=== PATIENT | female | born 1965 | race African-American/Black ===

== ENCOUNTER → 2018-03-03 | Outpatient (CLI) | payer MEDICAID ==
--- NOTE | 2018-03-03 16:58 | XCELERA REPORT ---
[address] [facility] [address] Lower Extremity Venous Evaluation Procedure: Color flow and duplex imaging bilaterally of the veins of the lower extremities as well as the Common Femoral veins. Right Sided Venous Evaluation Normal vessel filling wall to wall, compression and augmentation as well as Colour flow down to the infrageniculate veins. Left Sided Venous Evaluation Normal vessel filling wall to wall, compression and augmentation as well as Colour flow down to the infrageniculate veins. Interpretation Summary No duplex evidence of DVT or obstruction in the bilateral lower extremities. Name: JUAN MONIQUE Age: 52 yrs Gender: Female : 1965 Patient Status: Outpatient Patient Location: Study Date: 03/03/2018 08:32 AM Reason For Study: LLE PAIN Ordering Physician: COCO AARON Performed By: Sita Geronimo : COCO AARON > Khanh Blackwell
== END ==
LOC: SP 08:14
PROVIDERS: ATTEND Family Medicine
DX: M79.605 Pain in left leg (principal)
CPT/HCPCS: 93970

== ENCOUNTER 2018-10-23 14:19 | Emergency (ER) | payer MEDICAID ==
--- NOTE | 2018-10-23 14:55 | ER Document Report ---
ED Medical Screen (RME) - General Chief Complaint: Abdominal Pain Stated Complaint: ABDOMINAL PAIN Time Seen by Provider: 10/23/18 14:50 Primary Care Provider: COCO AARON MD [Primary Care Provider] - Follow up as needed Mode of Arrival: Wheelchair Information source: Patient Notes: Patient is a 53-year-old female who presents the emergency department with mul tiple vague complaints. Patient reports she has been having left lower extremity pain, states she saw the orthopedic, states they told her to take Voltaren gel and ibuprofen 800 mg. Patient now has developed left upper quadrant pain, she wonders if this is because she is taking the ibuprofen. Patient reports she has no nausea, vomiting or diarrhea. Denies any dysuria, urinary frequency or urgency. Patient reports the pain is worse when she takes a deep breath. Denies any trauma to this area. Exam: Tenderness to palpation to left upper quadrant. I have greeted and performed a rapid initial assessment of this patient. A comprehensive ED assessment and evaluation of the patient, analysis of test results and completion of the medical decision making process will be conducted by additional ED providers. Dictation of this chart was performed using voice recognition software; therefore, there may be some unintended grammatical errors. TRAVEL OUTSIDE OF THE [place] IN LAST 30 DAYS: No - Related Data Allergies/Adverse Reactions: aspirin [Aspirin] Allergy (Unknown, Verified 10/23/18 14:20) Past Medical History - Social History Frequency of alcohol use: None Drug Abuse: None - Past Medical History Cardiac Medical History: Reports: Hx Hypercholesterolemia, Hx Hypertension Denies: Hx Coronary Artery Disease, Hx Heart Attack Pulmonary Medical History: Reports: Hx Asthma Denies: Hx Bronchitis, Hx COPD, Hx Pneumonia Neurological Medical History: Denies: Hx Cerebrovascular Accident, Hx Seizures Renal/ Medical History: Denies: Hx Peritoneal Dialysis GI Medical History: Reports: Hx Gastroesophageal Reflux Disease Musculoskeltal Medical History: Reports Hx Arthritis Psychiatric Medical History: Reports: Hx Depression Past Surgical History: Reports: Hx Tonsillectomy, Hx Tubal Ligation. Denies: Hx Hysterectomy, Hx Pacemaker - Immunizations Hx Diphtheria, Pertussis, Tetanus Vaccination: Yes Physical Exam - Vital signs Vitals: Temp Pulse Resp BP Pulse Ox 97.7 F 73 20 159/95 H 99 10/23/18 14:28 10/23/18 14:28 10/23/18 14:28 10/23/18 14:28 10/23/18 14:28 Course - Vital Signs Vital signs: Temp Pulse Resp BP Pulse Ox 97.7 F 73 20 159/95 H 99 10/23/18 14:28 10/23/18 14:28 10/23/18 14:28 10/23/18 14:28 10/23/18 14:28 Doctor's Discharge - Discharge Referrals: COCO AARON MD [Primary Care Provider] - Follow up as needed
--- NOTE | 2018-10-23 16:12 | RADIOLOGY REPORT (SQ) ---
EXAM DESCRIPTION: RIBS LEFT W/PA CHEST COMPLETED DATE/TIME: 10/23/2018 3:55 pm REASON FOR STUDY: left rib pain COMPARISON: 03/24/2014. 08/16/2014. TECHNIQUE: Frontal view of the chest and additional views of the left ribs acquired. NUMBER OF VIEWS: Three views. LIMITATIONS: None. FINDINGS: FRONTAL CXR: No pneumothorax. No pleural effusion. There is a rounded density superimpos ed of the anterior right 5th rib on the PA view. The possibility of a pulmonarynodule is not exclude d RIBS: No displaced rib fractures. No lytic or blastic bony lesions. OTHER: Artifact from buttons seen on oblique views. IMPRESSION: 1. Rounded density superimposed over anterior right 5th rib. Pulmonary nodule is not e xcluded. No rib fracture seen. Consider CT. TECHNICAL DOCUMENTATION: JOB ID: [id number] [id number] 2010 [employer]- All Rights Reserved Reading location - IP/workstation name: [email or web address]
[2018-10-23 16:14] LABS: ABSOLUTE BASOPHILS # (AUTO) 0.1 10^3/uL (0.0-0.2); ABSOLUTE EOSINOPHILS # (AUTO) 0.2 10^3/uL (0.0-0.6); ABSOLUTE LYMPHOCYTES (AUTO) 2.1 10^3/uL (0.5-4.7); ABSOLUTE MONOCYTES (AUTO) 0.5 10^3/uL (0.1-1.4); ABSOLUTE NEUT (AUTO) 4.2 10^3/uL (1.7-8.2); BASOPHILS % (AUTO) 0.7 % (0-2); EOSINOPHILS % (AUTO) 2.7 % (0-6); HEMATOCRIT 37.6 % (36.0-47.0); HEMOGLOBIN 12.7 g/dL (12.0-15.5); LYMPHOCYTES % (AUTO) 30.2 % (13-45); MEAN CORPUSCULAR HEMOGLOBIN 28.5 pg (27.0-33.4); MEAN CORPUSCULAR HGB CONC 33.8 g/dL (32.0-36.0); MEAN CORPUSCULAR VOLUME 84 fl (80-97); MONOCYTES % (AUTO) 7.2 % (3-13); PLATELET COUNT 357 10^3/uL (150-450); RED BLOOD COUNT 4.46 10^6/uL (3.72-5.28); RED CELL DISTRIBUTION WIDTH 14.5 % (11.5-14.0); SEGMENTED NEUTROPHILS % (AUTO) 59.2 % (42-78); TOTAL CELLS COUNTED % (AUTO) 100 %; WHITE BLOOD COUNT 7.1 10^3/uL (4.0-10.5)
[2018-10-23 16:22] LABS: APPEARANCE,URINE CLEAR; BILIRUBIN,URINE NEGATIVE (NEGATIVE); COLOR,URINE YELLOW; GLUCOSE, URINE NEGATIVE (NEGATIVE); KETONES,URINE NEGATIVE (NEGATIVE); LEUKOCYTE ESTERASE,URINE NEGATIVE (NEGATIVE); NITRITE,URINE NEGATIVE (NEGATIVE); PROTEIN,URINE NEGATIVE (NEGATIVE); URINE SPECIFIC GRAVITY 1.021; UROBILINOGEN,URINE NEGATIVE mg/dL (<2.0)
[2018-10-23 16:32] LABS: ALANINE AMINOTRANSFERASE 27 U/L (9-52); ALBUMIN 4.3 g/dL (3.5-5.0); ALKALINE PHOSPHATASE 72 U/L (38-126); ANION GAP 17 (5-19); ASPARTATE AMINO TRANSFERASE 22 U/L (14-36); BILIRUBIN,DIRECT 0.2 mg/dL (0.0-0.4); BILIRUBIN,TOTAL 0.6 mg/dL (0.2-1.3); BLOOD UREA NITROGEN 12 mg/dL (7-20); CALCIUM 10.5 mg/dL (8.4-10.2); CARBON DIOXIDE 28 mmol/L (22-30); CHLORIDE 96 mmol/L (98-107); GLUCOSE 93 mg/dL (75-110); LIPASE 127.9 U/L (23-300); POTASSIUM 4.3 mmol/L (3.6-5.0); SODIUM 140.7 mmol/L (137-145); TOTAL PROTEIN 8.7 g/dL (6.3-8.2)
--- NOTE | 2018-10-23 16:41 | ER Document Report ---
ED General - General Chief Complaint: Abdominal Pain Stated Complaint: ABDOMINAL PAIN Time Seen by Provider: 10/23/18 14:50 Primary Care Provider: COCO AARON MD [ACTIVE STAFF] - Follow up as needed Mode of Arrival: Wheelchair Notes: Patient is a 53-year-old female who presents the emergency department with multiple vague complaints. Patient reports she has been having left lower ext remity pain, states she saw the orthopedic, states they told her to take Voltaren gel and ibuprofen 800 mg. Patient now has developed left upper quadrant pain, she wonders if this is because she is taking the ibuprofen. Patient reports she has no nausea, vomiting or diarrhea. Denies any dysuria, urinary frequency or urgency. Patient reports the pain is worse when she takes a deep breath. Denies any trauma to this area. TRAVEL OUTSIDE OF THE [place] IN LAST 30 DAYS: No - Related Data Allergies/Adverse Reactions: aspirin [Aspirin] Allergy (Unknown, Verified 10/23/18 14:20) Past Medical History - General Information source: Patient - Social History Smoking Status: Never Smoker Frequency of alcohol use: None Drug Abuse: None Family History: Reviewed & Not Pertinent Patient has suicidal ideation: No Patient has homicidal ideation: No - Past Medical History Cardiac Medical History: Reports: Hx Hypercholesterolemia, Hx Hypertension Denies: Hx Coronary Artery Disease, Hx Heart Attack Pulmonary Medical History: Reports: Hx Asthma Denies: Hx Bronchitis, Hx COPD, Hx Pneumonia Neurological Medical History: Denies: Hx Cerebrovascular Accident, Hx Seizures Renal/ Medical History: Denies: Hx Peritoneal Dialysis GI Medical History: Reports: Hx Gastroesophageal Reflux Disease Musculoskeletal Medical History: Reports Hx Arthritis Psychiatric Medical History: Reports: Hx Depression Past Surgical History: Reports: Hx Tonsillectomy, Hx Tubal Ligation. Denies: Hx Hysterectomy, Hx Pacemaker - Immunizations Hx Diphtheria, Pertussis, Tetanus Vaccination: Yes Review of Systems - Review of Systems Constitutional: No symptoms reported EENT: No symptoms reported Cardiovascular: No symptoms reported Respiratory: No symptoms reported Gastrointestinal: Abdominal pain. denies: Diarrhea, Nausea, Vomiting, Constipation Genitourinary: No symptoms reported Female Genitourinary: No symptoms reported Musculoskeletal: No symptoms reported Skin: No symptoms reported Hematologic/Lymphatic: No symptoms reported Neurological/Psychological: No symptoms reported Physical Exam - Vital signs Vitals: Temp Pulse Resp BP Pulse Ox 97.7 F 73 20 159/95 H 99 10/23/18 14:28 10/23/18 14:10/23/18 14:10/23/18 14:10/23/18 14:28 - Notes Notes: PHYSICAL EXAMINATION: GENERAL: Well-appearing, well-nourished and in no acute distress. HEAD: Atraumatic, normocephalic. EYES: Pupils equal round and reactive to light, extraocular movements intact, conjunctiva are normal. ENT: Nares patent, oropharynx clear without exudates. Moist mucous membranes. NECK: Normal range of motion, supple without lymphadenopathy LUNGS: Breath sounds clear to auscultation bilaterally and equal. No wheezes rales or rhonchi. HEART: Regular rate and rhythm without murmurs ABDOMEN: Soft, nondistended abdomen. No masses appreciated. Mild tenderness to the left upper quadrant with no guarding or rebound tenderness, abdomen otherwise benign. Female : deferred Musculoskeletal: Normal range of motion, no pitting or edema. No cyanosis. NEUROLOGICAL: Cranial nerves grossly intact. Normal speech, normal gait. Normal sensory, motor exams PSYCH: Normal mood, normal affect. SKIN: Warm, Dry, normal turgor, no rashes or lesions noted. Course - Re-evaluation Re-evalutation: CBC, lipase and CMP are unremarkable. Left rib x-ray with chest was performed, there are no rib fractures or other explanation for the left upper quadrant pain. There is a pulmonary nodule noted on the right side, they recommended CT scan. I spoke with the patient she denies any knowledge of history of pulmonary nodules although upon reviewing patient's records patient had a CT of the chest done in 2013 which showed pulmonary nodules to both the right and left lungs. Patient denies any knowledge of this. Patient was sent for a CT of the chest, there appears to be stable pulmonary nodules with no change from previous. This was discussed extensively with the patient and she understands the need to follow-up with her primary care provider. She understands worst-case possible this could be cancer however this is unlikely due to the fact that they have been present for 5 years with little to no change. - Vital Signs Vital signs: Temp Pulse Resp BP Pulse Ox 97.7 F 73 20 159/95 H 99 10/23/18 14:28 10/23/18 14:10/23/18 14:10/23/18 14:28 10/23/18 14:28 - Laboratory Result Diagrams: 10/23/18 15:35 10/23/18 15:35 Laboratory results interpreted by me: 10/23/18 10/23/18 10/23/18 15:35 15:35 15:35 RDW 14.5 H Chloride 96 L Creatinine 0.49 L Calcium 10.5 H Total Protein 8.7 H Urine Ascorbic Acid 20 H Discharge - Discharge Clinical Impression: Pulmonary nodules Abdominal pain Qualifiers: Abdominal location: left upper quadrant Qualified Code(s): R10.12 - Left upper quadrant pain Condition: Stable Disposition: HOME, SELF-CARE Additional Instructions: I was unable to find an exact cause of the pain in your left upper quadrant of the abdomen. This could be due to the fact that you have been taking a lot of ibuprofen. On the CAT scan and the x-ray it does show that you have some pulmonary nodules. These nodules were present in 2013 on previous scans. Please follow-up with your primary care provider, call her Friday to establish an appointment. Please let her know that you had a CT scan done here at [place], she can pull up the results for further follow-up. At this time it is unknown exactly what the pulmonary nodules are and it is a possibility that they could be cancerous. Referrals: COCO AARON MD [ACTIVE STAFF] - Follow up as needed
--- NOTE | 2018-10-23 18:27 | RADIOLOGY REPORT (SQ) ---
EXAM DESCRIPTION: CT CHEST WITH COMPLETED DATE/TIME: 10/23/2018 6:09 pm REASON FOR STUDY: LUQ pain, compare with previous study COMPARISON: 03/24/2014 TECHNIQUE: CT scan of the chest performed using helical scanning technique with dynamic intravenous contrast injection. Images reviewed with lung, soft tissue and bone windows. Reconstructed coronal and sagittal MPR and MIP images reviewed. All images stored on PACS. All CT scanners at this facility use dose modulation, iterative reconstruction, and/or weight based d osing when appropriate to reduce radiation dose to as low as reasonably achievable (ALARA). [facility]: Dose Right [facility]: CareDose [facility]: Dose Right [facility]: Teradose 4D [facility]: Smart [employer] CONTRAST TYPE AND DOSE: Not recorded here. Refer to aeronautical engineering technologist notes. RENAL FUNCTION: Not recorded. RADIATION DOSE: CT Rad equipment meets quality standard of care and radiation dose reduction techniq ues were employed. CTDIvol: 14.4 mGy. DLP: 604 mGy-cm. . LIMITATIONS: None. FINDINGS: LUNGS AND PLEURA: There is a stable 4 mm nodule on the left on image 45. There is a stabl e 7 mm nodule in the medial aspect the right lower lobe on image 48. There is a 4 mm nodule in the r ight lung on image 43. This is not seen on the earlier study. There is a 4 mm subpleural nodule ant eriorly on the left on image 33. Stable 4 mm nodule is present in the right upper lobe on image 25. HILAR AND MEDIASTINAL STRUCTURES: No identified masses or abnormal nodes. HEART AND VASCULAR STRUCTURES: No aneurysm or dissection. No central pulmonary emboli. No pericardi al effusion. HARDWARE: None in the chest. UPPER ABDOMEN: No significant findings. Limited exam. THYROID AND OTHER SOFT TISSUES: No masses. No adenopathy. BONES: No significant finding. OTHER: No other significant finding. IMPRESSION: Stable small pulmonary nodules. There are couple of 4 mm nodules identified that are no t seen on the prior study. COMMENT: FLEISCHNER CRITERIA FOR FOLLOW-UP OF PULMONARY NODULES Incidentally detected new nodules in persons 35 or older. HIGH RISK: History of smoking or other known risk factors. 6-8mm multiple solid nodules: LOW RISK: CT 3-6 mo; then consider CT 18-24 mo. HIGH RISK: CT 3-6 mo; t hen CT 18-24 mo. TECHNICAL DOCUMENTATION: JOB ID: [id number] Quality ID # [id number]: Final reports with documentation of one or more dose reduction techniques (e.g., Au tomated exposure control, adjustment of the mA and/or kV according to patient size, use of iterative reconstruction technique) 2010 [employer]- All Rights Reserved Reading location - IP/workstation name: [email or web address]
[2018-10-23 19:13] VITALS: BP 166/115
--- NOTE | 2018-10-23 19:32 | EKG REPORT ---
SEVERITY:- BORDERLINE ECG - SINUS RHYTHM PROBABLE LEFT ATRIAL ABNORMALITY : Confirmed by: Maria Luz Anne MD 23-Oct-2018 19:31:13
== END 2018-10-23 19:11 | disposition home or self-care (01) ==
LOC: ER 14:19
DX: R10.12 Left upper quadrant pain (principal); R10.812 Left upper quadrant abdominal tenderness; R91.8 Other nonspecific abnormal finding of lung field; M79.605 Pain in left leg; I10 Essential (primary) hypertension; J45.909 Unspecified asthma, uncomplicated; Z87.19 Personal history of other diseases of the digestive system; Z88.6 Allergy status to analgesic agent
CPT/HCPCS: 36415; 71260; 80053; 81001; 83690; 85025; 93005; 93010; 99284